=== PATIENT | male | born 1945 | race Caucasian/White ===

== ENCOUNTER → 2020-05-23 | Outpatient (CLI) | payer MEDICARE ==
[~2020-05-23] MED LIST: VIBRAMYCIN100 MG PO
== END ==
LOC: KOH-I 13:31
DX: M79.672 Pain in left foot (principal); M79.671 Pain in right foot; M25.571 Pain in right ankle and joints of right foot; M25.572 Pain in left ankle and joints of left foot; M19.072 Primary osteoarthritis, left ankle and foot; M19.071 Primary osteoarthritis, right ankle and foot
CPT/HCPCS: 73610; 73630

== ENCOUNTER → 2020-05-30 | Outpatient (CLI) | payer MEDICARE | LOC: EXRD 13:24 | DX: M25.469 Effusion, unspecified knee (principal); R20.2 Paresthesia of skin | CPT/HCPCS: 93925 ==

== ENCOUNTER → 2020-06-22 | Outpatient (CLI) | payer MEDICARE | LOC: HEART 5 11:00 → CT 13:00 | DX: R60.0 Localized edema (principal); M79.604 Pain in right leg; M79.605 Pain in left leg; M79.672 Pain in left foot | CPT/HCPCS: 93970 ==